=== PATIENT | female | born 2005 | race Caucasian/White ===

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

== ENCOUNTER 2024-08-27 17:50 | Emergency (ER) | payer OTHER, SELFPAY ==
[2024-08-27] VITALS (7 sets, daily range): BP systolic 96–117; BP diastolic 60–69; PULSE 60–78; RESP 14–18; TEMP 36.8; O2SAT 100
--- NOTE | ~2024-08-27 | US_ITS ---
EXAMINATION: US pelvic complete w TV DATE: 08/27/2024 20:29 INDICATION: Pelvic pain TECHNIQUE: Multiple transabdominal and endovaginal sonographic images of the pelvis were obtained. COMPARISON: None. FINDINGS: The uterus measures 6.4 x 3.2 x 4.2 cm. The endometrial complex measures 1 mm in thickness at the evelyn dy and fundus of the uterus. The endometrial complex measures 11 mm in thickness with irregular kwaku ns and with minimal amount of fluid within the endometrial canal at the lower uterine segment. There is also a small amount of anechoic fluid within the endocervical canal. The right ovary measures 2.1 x 1.6 x 1.3 cm. The left ovary measures 4.2 x 3.1 x 3.1 cm. 3.4 x 2.6 x 2.4 cm complex cystic lesion in the left ovary which is predominantly anechoic with some peripheral h ypoechoic material with concave margins and a few thin linear internal septations which is most sugge stive of a hemorrhagic cyst. Vascular flow identified in both ovaries on color Doppler. There is smal l amount of anechoic free fluid in the pelvis. IMPRESSION: 1. 3.4 cm complex cystic lesion in the left ovary with appearance favoring a hemorrhagic cyst. Recomm end follow-up pelvic ultrasound in 4-8 weeks to document resolution. 2. Focal widening of the endometrial complex at the lower uterine segment with minimal amount fluid w ithin the endometrial canal extending into the endocervical canal of indeterminate etiology potential ly representing residual blood and tissue related to menstrual cycle. Would consider reevaluation wit h pelvic ultrasound at the same time as follow-up for the likely hemorrhagic cyst. Reviewed, dictated and finalized at location A. [employer] IMPRESSION: 1. 3.4 cm complex cystic lesion in the left ovary with appearance favoring a he morrhagic cyst. Recommend follow-up pelvic ultrasound in 4-8 weeks to document resolution. 2. Focal widening of the endometrial complex at the lower uterine segment with minimal amount fluid within the endometrial canal extending into the endocervic al canal of indeterminate etiology potentially representing residual blood and tissue related to menstrual cycle. Would consider reevaluation with pelvic ultr asound at the same time as follow-up for the likely hemorrhagic cyst.
[2024-08-27 19:12] LABS: Basophils Percent Auto 0.4 % (0.2-1.2); Eosinophils Absolute Auto 0.1 K/mm3 (0-0.3); Eosinophils Percent Auto 1.3 % (0-4.4); Hematocrit 39.3 % (37.0-47.0); Hemoglobin 12.9 g/dL (12.0-15.0); Lymphocytes Absolute Auto 1.78 K/mm3 (0.9-3.2); Lymphocytes Percent Auto 33.9 % (18.3-44.2); Mean Corpuscular HGB Conc 32.8 g/dl (32-36); Mean Corpuscular Hemoglobin 32.1 pg (26-34); Mean Corpuscular Volume 97.8 fl (80-100); Mean Platelet Volume 9.7 fl (7.4-10.4); Monocytes Absolute Auto 0.5 K/mm3 (0.1-0.6); Monocytes Percent Auto 8.8 % (2.6-8.5); Neutrophils Absolute Auto 2.9 K/mm3 (1.3-6.7); Neutrophils Percent Auto 55.6 % (45.5-73.1); Platelet Count Result 190 k/mm3 (150-375); Red Blood Count 4.02 M/mm3 (4.2-5.4); White Blood Count 5.3 K/mm3 (4.5-10.0)
[2024-08-27 19:21] LABS: Anion Gap 5 mmol/L (4-12); Blood Urea Nitrogen 9 mg/dL (8-21); Calcium 8.8 mg/dL (8.9-10.7); Carbon Dioxide 26 mmol/L (22-30); Chloride 108 mmol/L (98-107); Estimated CRCL calculation 104 ml/min; Estimated Glomerular Filt Rate > 60; Glucose 77 mg/dL (65-110); Potassium 3.7 mmol/L (3.4-5.0); Sodium 139 mmol/L (134-143)
[2024-08-27 19:28] LABS: Partial Thromboplastin Time 40.2 Seconds (22.3-36.8)
[2024-08-27 20:05] LABS: Add Urine Microscopic? YES; Appearance Urine Cloudy (Clear); Bacteria Urine Rare /hpf; Bilirubin Urine Negative (Negative); Blood Urine 3+ (Negative); Color Urine Yellow (Yellow); Glucose Urine UA Negative (Negative); Ketones Urine Negative (Negative); Leukocyte Esterase Ur Negative LEU/UL (Negative); Nitrate Urine Negative (Negative); Non Pathogenic Casts 0-2; Protein Urine Trace mg/dL (Negative); RBC Urine >100 /hpf (0-2); Specific Grav Ur 1.016 (1.001-1.035); Squamous Epithelial Cell Urine Occasional /hpf (Few); Urobilinogen Urine 0.2 mg/dL (<2.0); WBC Urine 0-5 /hpf (0-3); pH Urine 6.5 (5.0-9.0)
[2024-08-27 20:38] LABS: Pregnancy On Board Control Positive; Urine Pregnancy Test Negative
--- NOTE | 2024-08-27 20:46 | ED_ITS ---
HPI - Abdominal Pain General Chief Complaint: Vaginal Bleeding Stated Complaint: vaginal bleeding, abd pain Time Seen by Provider: 08/27/24 19:24 Source: patient Mode of arrival: ambulatory Limitations: no limitations History of Present Illness HPI narrative: This is a 18 year old female that presents to the ER for left sided lower abdominal pain. Ongoing over the last week. Reports she was diagnosed with an ovarian cyst. She started her menstrual cycle today. Denies fever, vomiting. Related Data Allergies Allergy/AdvReac Type Severity Reaction Status Date / Time No Known Allergies Allergy Mild Verified 08/07/22 11:37 Review of Systems Review of Systems: CONSTITUTIONAL: Denies fever GASTROINTESTINAL: Reports abdominal pain, nausea. Denies vomiting, or diarrhea. GENITOURINARY: Denies dysuria All systems reviewed & are unremarkable except as noted in HPI and below PMFSH Past Medical History Medical History (Updated 08/27/24 @ 21:51 by Adriane Aceves PA-C) No active medical problems Social History Social History (Updated 08/27/24 @ 20:48 by Adriane Aceves PA-C) Substance use: never Exam Narrative: GENERAL: Well-appearing, well-nourished, and in no acute distress. HEAD: Normocephalic, atraumatic. EYES: EOMI. CHEST: Clear to auscultation. No respiratory distress. No wheezes rales or rhonchi HEART: Regular rate and rhythm. No murmur heard. Normal peripheral pulses. ABDOMEN: Soft, nondistended, normal active bowel sounds. Mild tenderness to palpation throughout the lower abdomen, without guarding EXTREMITIES: Normal range of motion. No edema. SKIN: Warm, dry, no rash. NEURO: No focal deficits. Alert and oriented x3. PSYCH: Normal mood and affect Course Course Emergency Course: patient updated on workup and agrees with plan of care Vital Signs Vital signs: Vital Signs Temperature 98.3 F 08/27/24 17:55 Pulse Rate 64 08/27/24 17:55 Respiratory Rate 16 08/27/24 17:55 Blood Pressure 117/67 08/27/24 17:55 Pulse Oximetry 100 08/27/24 17:55 Oxygen Delivery Room Air 08/27/24 17:55 Temperature 98.3 F 08/27/24 18:21 Pulse Rate 60 08/27/24 18:26 Respiratory Rate 18 08/27/24 18:21 Blood Pressure 96/67 L 08/27/24 18:26 Pulse Oximetry 100 08/27/24 18:21 Oxygen Delivery Room Air 08/27/24 18:07 MDM - Abdominal Pain MDM Narrative Medical decision making narrative: patient presents the emergency department for left-sided lower abdominal pain. She is afebrile and nontoxic appearing. Her vitals are stable. Cbc without leukocytosis. Metabolic panel without concerning findings. Urine without evidence of infection. Pelvic ultrasound shows a 3.4 cm left ovarian cyst. Normal vascular flow to the ovaries. Also showing an abnormality of the endometrial complex which could be due to her her menstrual cycle. Patient updated on her workup. Will be given Gynecology for further follow-up. She additionally endorse that she is a to use that has been bothering her. She is abscess exam. I will send oral and since she was instructed to follow-up with a dentist this. She was given warnings to return to the ER Differential Diagnosis Differential diagnosis: Likely other (ovarian torsion, ovarian cyst rupture) Lab Data Attestation: I reviewed the patient's lab results. 08/27/24 19:00 08/27/24 19:00 Labs: Lab Results 08/27/24 08/27/24 Range/Units 19:00 19:47 WBC 5.3 (4.5-10.0) K/mm3 RBC 4.02 L (4.2-5.4) M/mm3 Hgb 12.9 (12.0-15.0) g/dL Hct 39.3 (37.0-47.0) % MCV 97.8 (80-100) fl MCH 32.1 (26-34) pg MCHC 32.8 (32-36) g/dl RDW 12.0 (11.5-14.5) % Plt Count 190 (150-375) k/mm3 MPV 9.7 (7.4-10.4) fl Immature Gran % (Auto) 0.0 (0-0.5) % Neut % (Auto) 55.6 (45.5-73.1) % Lymph % (Auto) 33.9 (18.3-44.2) % Prairie % (Auto) 8.8 H (2.6-8.5) % Eos % (Auto) 1.3 (0-4.4) % Baso % (Auto) 0.4 (0.2-1.2) % Lymph # (Auto) 1.78 (0.9-3.2) K/mm3 Prairie # (Auto) 0.5 (0.1-0.6) K/mm3 Eos # (Auto) 0.1 (0-0.3) K/mm3 Baso # (Auto) 0.0 (0.0-0.1) K/mm3 Abs Immat Gran (auto) 0.00 (0.00-0.031) K/mm3 Absolute Neuts (auto) 2.9 (1.3-6.7) K/mm3 Absolute Nucleated RBC 0.000 (0.0-0.012) K/mm3 Nucleated RBC % 0.0 (0.0-0.2) % PT 14.0 (11.1-14.7) Seconds INR 1.0 APTT 40.2 H (22.3-36.8) Seconds Sodium 139 (134-143) mmol/L Potassium 3.7 (3.4-5.0) mmol/L Chloride 108 H (98-107) mmol/L Carbon Dioxide 26 (22-30) mmol/L Anion Gap 5 (4-12) mmol/L BUN 9 (8-21) mg/dL Creatinine 0.70 (0.7-1.0) mg/dL Estim Creat Clear Calc 104 ml/min Estimated GFR > 60 (59 - ) Glucose 77 (65-110) mg/dL Calcium 8.8 L (8.9-10.7) mg/dL Beta HCG, Quant < 2.39 mIU/ML Urine Color Yellow (Yellow) Urine Appearance Cloudy H (Clear) Urine pH 6.5 (5.0-9.0) Ur Specific Leopold 1.016 (1.001-1.035) Urine Protein Trace (Negative) mg/dL Urine Glucose (UA) Negative (Negative) mg/dL Urine Ketones Negative (Negative) mg/dL Ur Blood (Man) 3+ H (Negative) Urine Nitrate Negative (Negative) Urine Bilirubin Negative (Negative) Urine Urobilinogen 0.2 (<2.0) mg/dL Leukocyte Esterase Rfl Negative (Negative) EDEN/UL Urine RBC >100 H (0-2) /hpf Urine WBC 0-5 (0-3) /hpf Ur Squamous Epith Cells Occasional (Few) /hpf Urine Bacteria Rare /hpf Urine Casts 0-2 Urine Test Negative Imaging Data Radiologist's impression: ITS Impressions Pelvic/Transvag US 08/27/24 20:30 IMPRESSION: 1. 3.4 cm complex cystic lesion in the left ovary with appearance favoring a hemorrhagic cyst. Recommend follow-up pelvic ultrasound in 4-8 weeks to document resolution. 2. Focal widening of the endometrial complex at the lower uterine segment with minimal amount fluid within the endometrial canal extending into the endocervical canal of indeterminate etiology potentially representing residual blood and tissue related to menstrual cycle. Would consider reevaluation with pelvic ultrasound at the same time as follow-up for the likely hemorrhagic cyst. Critical Care Time Critical Care Time Critical Care Time: No Discharge Plan Discharge Clinical Impression: Toothache Ovarian cyst Qualifiers: Laterality: left Qualified Code(s): N83.202 - Unspecified ovarian cyst, left side Patient Disposition: Home, Self-Care Condition: Stable Instructions: Antibiotic Form, Ovarian Cyst (ED), Toothache (ED) Additional Instructions: Return to the ER if you experience fever, abdominal pain with nausea and vomiting, you are unable to keep down liquids or solids, or any other symptoms that are concerning to you Remain well hydrated. [id number] pain medication as needed. Take oral antibiotic as prescribed Follow up with gynecology You should also have follow-up with a dentist Prescriptions: New amoxicillin-pot clavulanate 875-125 mg tablet 1 tablet PO Q12H 10 Days Qty: 20 0RF Follow-up/Referrals: George Leary MD [Physician] - UNKNOWN,DOCTOR [Primary Care Provider] -
[2024-08-27 21:23] LABS: Beta HCG Quantitative < 2.39 mIU/ML
[2024-08-27] MEDS: IBUPROFEN 600 MG TABLET PO (21:50)
== END 2024-08-27 22:16 | disposition home or self-care (01) ==
PROVIDERS: Emergency Provider Physician Assistant
DX: N83.202 Unspecified ovarian cyst, left side (principal); K08.89 Other specified disorders of teeth and supporting structures
CPT/HCPCS: 36415; 76830; 76856; 80048; 81001; 81025; 84702; 85025; 85610; 85730; 99284; A9270